=== PATIENT | female | born 1990 | race Two or more races ===

== ENCOUNTER 2018-03-11 11:33 | Emergency (ER) | payer SELFPAY ==
[~2018-03-11] VITALS: Ht 165.1 cm; Wt 104.3 kg
[2018-03-11 13:24] VITALS: BP 148/87
[2018-03-11] MEDS ORDERED: FAMOTIDINE 20 MG/2 ML VIAL IVP ONE (13:45)
[2018-03-11] MEDS ORDERED: IV NORMAL SALINE 1000ML BAG 1,000 ML IV ONE (13:45)
[2018-03-11] MEDS ORDERED: KETOROLAC 30 MG/ML VIAL. IV ONE (13:45)
[2018-03-11] MEDS ORDERED: PROCHLORPERAZINE 10 MG/2 ML VIAL. IV ONE (13:45)
[2018-03-11 13:51] LABS: BASO % 1 % (0-3); EOS # 0.1 x10^3/uL (0.0-0.7); EOS % 1 % (0-3); HEMATOCRIT 44.4 % (36.0-47.0); HEMOGLOBIN 14.9 g/dL (12.0-15.5); LYMPH % 32 % (24-48); MEAN CORPUSCULAR HEMOGLOBIN 31 pg (25-35); MEAN CORPUSCULAR HGB CONC 34 g/dL (31-37); MEAN CORPUSCULAR VOLUME 91 fL (79-100); MONO % 16 % (0-9); NEUT # 3.2 x10^3uL (1.8-7.7); NEUT % 51 % (31-73); PLATELET COUNT 379 x10^3/uL (140-400); RED CELL DISTRIBUTION WIDTH 15.2 % (11.5-14.5); WHITE BLOOD COUNT 6.2 x10^3/uL (4.0-11.0)
[2018-03-11 14:01] LABS: CALCIUM 9.1 mg/dL (8.5-10.1); CREATININE 0.9 mg/dL (0.6-1.0); GFR 76.3; POTASSIUM 3.1 mmol/L (3.5-5.1)
--- NOTE | 2018-03-11 14:05 | PHYS DOC ---
Past Medical History Past Medical History: No Pertinent History Past Surgical History: No Surgical History Alcohol Use: None Drug Use: None Adult General Chief Complaint Chief Complaint: SYNCOPE HPI HPI Patient is a 27 year old female who presents with 1 week of nausea and not eating and only taking in water because eating makes her vomit. Patient states she also has have palpitations, headache, generalized weakness, dizziness. Patient states that she passed out once last night and she passed out twice today. She states that she pulled it dizzy and then get nauseated and vomit and pass out. Review of Systems Review of Systems Constitutional: Denies fever or chills [] Eyes: Denies change in visual acuity, redness, or eye pain [] HENT: Denies nasal congestion or sore throat [] Respiratory: Denies cough or shortness of breath [] Cardiovascular: No additional information not addressed in HPI [] GI: Denies abdominal pain, nausea, vomiting, bloody stools or diarrhea [] : Denies dysuria or hematuria [] Musculoskeletal: Denies back pain or joint pain [] Integument: Denies rash or skin lesions [] Neurologic: Denies headache, focal weakness or sensory changes [] Endocrine: Denies polyuria or polydipsia [] All other systems were reviewed and found to be within normal limits, except as documented in this note. Current Medications Current Medications Current Medications Medications (Trade) Dose Ordered Sig/Zhen Start Time Stop Time Status Last Admin Dose Admin Famotidine (Pepcid Vial) 20 mg 1X ONCE 03/11/18 13:45 03/11/18 13:48 DC 03/11/18 14:08 20 MG Info (CONTRAST GIVEN -- Rx MONITORING) 1 each PRN DAILY PRN 03/11/18 15:45 03/13/18 15:44 Iohexol (Omnipaque 300 Mg/ml) 75 ml 1X ONCE 03/11/18 15:45 03/11/18 15:46 DC Ketorolac Tromethamine (Toradol 30mg Vial) 30 mg 1X ONCE 03/11/18 13:45 03/11/18 13:48 DC 03/11/18 14:09 30 MG Prochlorperazine Edisylate (Compazine) 10 mg 1X ONCE 03/11/18 13:45 03/11/18 13:48 DC 03/11/18 14:09 10 MG Sodium Chloride 1,000 ml @ 1,000 mls/hr 1X ONCE 03/11/18 13:45 03/11/18 14:44 DC 03/11/18 14:10 1,000 MLS/HR Allergies Allergies Allergies Coded Allergies Type Severity Reaction Last Updated Verified No Known Drug Allergies 03/11/18 No Physical Exam Physical Exam Constitutional: Well developed, well nourished, no acute distress, non-toxic appearance. [] HENT: Normocephalic, atraumatic, bilateral external ears normal, oropharynx moist, no oral exudates, nose normal. [] Eyes: PERRLA, EOMI, conjunctiva normal, no discharge. [] Neck: Normal range of motion, no tenderness, supple, no stridor. [] Cardiovascular:Heart rate regular rhythm, no murmur [] Lungs & Thorax: Bilateral breath sounds clear to auscultation [] Abdomen: Bowel sounds normal, soft, no tenderness, no masses, no pulsatile masses. [] Skin: Warm, dry, no erythema, no rash. [] Back: No tenderness, no CVA tenderness. [] Extremities: No tenderness, no cyanosis, no clubbing, ROM intact, no edema. [] Neurologic: Alert and oriented X 3, normal motor function, normal sensory function, no focal deficits noted. [] Psychologic: Affect normal, judgement normal, mood normal. [] Current Patient Data Vital Signs Vital Signs Date Time Temp Pulse Resp B/P (MAP) Pulse Ox O2 Delivery O2 Flow Rate FiO2 03/11/18 13:24 97.7 104 18 148/87 (107) 100 Room Air 97.7 Lab Values Laboratory Tests Test 03/11/18 13:12 03/11/18 13:40 03/11/18 14:51 03/11/18 14:58 Glucose (Fingerstick) 133 mg/dL (70-99) H White Blood Count 6.2 x10^3/uL (4.0-11.0) Red Blood Count 4.90 x10^6/uL (3.50-5.40) Hemoglobin 14.9 g/dL (12.0-15.5) Hematocrit 44.4 % (36.0-47.0) Mean Corpuscular Volume 91 fL (79-100) Mean Corpuscular Hemoglobin 31 pg (25-35) Mean Corpuscular Hemoglobin Concent 34 g/dL (31-37) Red Cell Distribution Width 15.2 % (11.5-14.5) H Platelet Count 379 x10^3/uL (140-400) Neutrophils (%) (Auto) 51 % (31-73) Lymphocytes (%) (Auto) 32 % (24-48) Monocytes (%) (Auto) 16 % (0-9) H Eosinophils (%) (Auto) 1 % (0-3) Basophils (%) (Auto) 1 % (0-3) Neutrophils # (Auto) 3.2 x10^3uL (1.8-7.7) Lymphocytes # (Auto) 2.0 x10^3/uL (1.0-4.8) Monocytes # (Auto) 1.0 x10^3/uL (0.0-1.1) Eosinophils # (Auto) 0.1 x10^3/uL (0.0-0.7) Basophils # (Auto) 0.0 x10^3/uL (0.0-0.2) Sodium Level 141 mmol/L (136-145) Potassium Level 3.1 mmol/L (3.5-5.1) L Chloride Level 102 mmol/L (98-107) Carbon Dioxide Level 27 mmol/L (21-32) Anion Gap 12 (6-14) Blood Urea Nitrogen 3 mg/dL (7-20) L Creatinine 0.9 mg/dL (0.6-1.0) Estimated GFR (Cockcroft-Gault) 76.3 BUN/Creatinine Ratio 3 (6-20) L Glucose Level 125 mg/dL (70-99) H Calcium Level 9.1 mg/dL (8.5-10.1) Total Bilirubin 0.4 mg/dL (0.2-1.0) Aspartate Amino Transferase (AST) 16 U/L (15-37) Alanine Aminotransferase (ALT) 27 U/L (14-59) Alkaline Phosphatase 75 U/L (46-116) Total Protein 8.2 g/dL (6.4-8.2) Albumin 3.7 g/dL (3.4-5.0) Albumin/Globulin Ratio 0.8 (1.0-1.7) L Urine Collection Type U cath Urine Color Yellow Urine Clarity Cloudy Urine pH 6.0 Urine Specific [place] <=1.005 Urine Protein Negative mg/dL (NEG-TRACE) Urine Glucose (UA) Negative mg/dL (NEG) Urine Ketones (Stick) Negative mg/dL (NEG) Urine Blood Negative (NEG) Urine Nitrite Negative (NEG) Urine Bilirubin Negative (NEG) Urine Urobilinogen Dipstick 0.2 mg/dL (0.2 mg/dL) Urine Leukocyte Esterase Negative (NEG) Urine RBC 0 /HPF (0-2) Urine WBC 1-4 /HPF (0-4) Urine Squamous Epithelial Cells Many /LPF Urine Bacteria Many /HPF (0-FEW) POC Urine HCG, Qualitative Hcg negative (Negative) Laboratory Tests 03/11/18 13:40 Laboratory Tests 03/11/18 13:40 EKG EKG Normal sinus rhythm. No STEMI.[] Interpretation Time: 1403and read by Dr Ayala Radiology/Procedures Radiology/Procedures [] Impressions: [facility] [address] [place] [address] IMAGING REPORT Signed PATIENT: CARI BOJORQUEZ ACCOUNT: [id number] : 1990 LOCATION: ER AGE: 27 SEX: F EXAM STATUS: REG ER ORD. PHYSICIAN: NISA ZURITA APRN REASON: abdominal pain PROCEDURE: CT ABD PELV W/ IV CONTRST ONLY CT of the abdomen and pelvis with contrast 03/11/2018 3:46 PM Indication: SYNCOPAL EPISODE LAST NIGHT DIZZY VOMITING BURNING ON URINATION R FLANK PAIN NO PREV INJ 75ML OMNI 300 Comparison study: None Technique: Multidetector CT imaging of the abdomen and pelvis was performed following the administration of IV contrast. Findings: The partially visualized lung bases demonstrate no acute abnormality. The liver, gallbladder, spleen, bilateral adrenal glands, bilateral kidneys, and pancreas, demonstrate no acute abnormality.. There is no bowel obstruction. No evidence of acute inflammatory change involving visualized bowel is identified. Appendix is visualized and unremarkable in appearance. Bladder is mildly distended but otherwise grossly unremarkable. No free fluid or free air is seen in the abdomen or pelvis. No acute osseous changes are identified. Impression: No evidence of acute intra-abdominal abnormality is identified. CT DOSING PQRS STATEMENT: One or more of the following individualized dose reduction techniques were utilized for this examination: 1. Automated exposure control 2. Adjustment of the mA and/or kV according to patient size 3. Use of iterative reconstruction technique . Electronically signed by: Kirit Maldonado MD (03/11/2018 3:51 PM) [facility] DICTATED and SIGNED BY: KIRIT MALDONADO MD DATE: 03/11/18 [id number] [place] [address] IMAGING REPORT Signed PATIENT: CARI BOJORQUEZ ACCOUNT: [id number] : 1990 LOCATION: ER AGE: 27 SEX: F EXAM STATUS: REG ER ORD. PHYSICIAN: NISA ZURITA APRN REASON: syncope NEG PREG TEST @15:07 PROCEDURE: CHEST PA & LATERAL CHEST PA LATERAL History: Syncope Comparison: None. Findings: 2 views of the chest are submitted. There is no infiltrate, pneumothorax, or effusion. The cardiac silhouette is within normal limits in size. There is mild mid to inferior thoracic dextroscoliosis. Impression: 1. There is no radiographic evidence of acute cardiopulmonary disease. Electronically signed by: Georgiana Ragsdale MD (03/11/2018 3:41 PM) [facility] DICTATED and SIGNED BY: GEORGIANA RAGSDALE MD DATE: 03/11/18 1540 [facility] [address] [place], [place] [id number] IMAGING REPORT Signed PATIENT: CARI BOJORQUEZ ACCOUNT: [id number] : 1990 LOCATION: ER AGE: 27 SEX: F EXAM STATUS: REG ER ORD. PHYSICIAN: NISA ZURITA APRN REASON: syncope PROCEDURE: CT HEAD WO CONTRAST CT HEAD WO CONTRAST Clinical indications: SYNCOPAL EPISODE LAST NIGHT DIZZY VOMITING BURNING ON URINATION R FLANK PAIN COMPARISON: None available. Technique: Noncontrast axial cross sectional scanning of the head was performed. PQRS compliance Statement One or more of the following individualized dose reduction techniques were utilized for this study: 1. Automated exposure control 2. Adjustment of the mA and/or kV according to patient size 3. Use of iterative reconstruction technique Findings: No acute intracranial hemorrhage or midline shift or mass-effect or hydrocephalus or extra-axial fluid collection is seen. No focal hypodense area or sulci effacement is seen to indicate an acute infarct or edema radiographically. No skull fracture or pneumocephalus is seen. No opacification of the mastoid sinuses or the middle ear cavities is seen. The paranasal sinuses are not completely seen in this study. Impression: No acute intracranial abnormality is seen. Electronically signed by: Tara Kathleen MD (03/11/2018 3:40 PM) [facility] DICTATED and SIGNED BY: TARA KATHLEEN MD DATE: 03/11/18 1538 Course & Med Decision Making Course & Med Decision Making Patient is a 27 year old female who presents with 1 week of nausea and not eating and only taking in water because eating makes her vomit. Patient states she also has have palpitations, headache, generalized weakness, dizziness. Patient states that she passed out once last night and she passed out twice today. She states that she pulled it dizzy and then get nauseated and vomit and pass out. Alert and oriented. In the car with a is skin pink warm and dry. Neurologically intact. Mucous membranes are moist. Abdomen is soft but generalized tenderness is felt. She does state that she does have some burning with urination. She denies any vaginal discharge or vaginal bleeding. Her last period was March 01. She denies any pain at this time. PERRLA. Patient's blood glucose in the ED is 133. Heart rate 70, 100% on room air, 16 respirations , 97.7, 148/99. Patient states she has no medical or surgical history. She is allergic to any medications. Patient's orthostatics are layin, 122/69; sittin, 128/75; standin/69, 94. Patient denies any chest pain, shortness of air, diarrhea, fever, numbness or tingling. Patient has no peripheral edema, pain with breathing or calf pain. Patient is not on any control or hormones. She denies any recent illness. Lungs are clear to auscultation in all lobes. Heart regular without murmur. Blood work is unremarkable. All radiology scans show no acute findings. Urine shows some bacteria but no nitrites and only 1-4 white blood cell counts. Patient we given nausea medication and a prescription for Keflex for 5 days because of the bacteria in her urine and the patient having dysuria. Patient to drink plenty of fluids and eat before taking antibiotic. Patient is follow primary care doctor. Dragon Disclaimer Dragon Disclaimer This electronic medical record was generated, in whole or in part, using a voice recognition dictation system. Departure Departure Impression: Primary Impression: Nausea & vomiting Additional Impressions: Dizziness Urinary symptom or sign Disposition: HOME, SELF-CARE Condition: STABLE Referrals: NO PCP (PCP) Patient Instructions: Dizziness, Nausea and Vomiting, Urinary Tract Infection Additional Instructions: Patient to drink plenty of fluids and eat before taking antibiotic. Patient is follow primary care doctor. Scripts Cephalexin (KEFLEX) 500 Mg Capsule 1 CAP PO BID for 5 Days, #10 CAP Prov: NISA ZURITA APRN 03/11/18 Ondansetron (ONDANSETRON ODT) 4 Mg Tab.rapdis 1 TAB PO PRN Q6-8HRS, #20 TAB Prov: NISA ZURITA APRN 03/11/18 NIHSS Stroke Scale NIH Stroke Scale: NIH Stroke Scale Response (Comments) Value Level of Consciousness: 0 Alert/Responsive 0 LOC Questions: 0 Answers both correctly 0 LOC Commands: 0 Performs both tasks 0 Best Gaze: 0 Normal 0 Visual: 0 No visual loss 0 Facial Palsy: 0 Normal, symmetrical 0 Motor - Left Arm 0 No drift 0 Motor - Right Arm 0 No drift 0 Motor - Left Leg 0 No drift 0 Motor: Right Leg 0 No drift 0 Limb Ataxia: 0 Absent 0 Sensory: 0 No loss 0 Best Language: 0 Normal 0 Dysathria: 0 Normal 0 Extinction and Inattention: 0 Normal 0 Total 0 Problem Qualifiers Primary Impression: Nausea & vomiting Vomiting type: unspecified Vomiting Intractability: unspecified Qualified Codes: R11.2 - Nausea with vomiting, unspecified NISA ZURITA DAY GUARD Mar 11, 2018 14:05
[2018-03-11 14:07] LABS: ALBUMIN 3.7 g/dL (3.4-5.0); ALBUMIN/GLOBULIN RATIO 0.8 (1.0-1.7); TOTAL BILIRUBIN 0.4 mg/dL (0.2-1.0); TOTAL PROTEIN 8.2 g/dL (6.4-8.2)
--- NOTE | 2018-03-11 14:34 | EKG ---
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
[2018-03-11 15:06] LABS: BILIRUBIN,URINE NEGATIVE (NEG); CLARITY,URINE CLOUDY; COLOR,URINE YELLOW; NITRITE,URINE NEGATIVE (NEG); PROTEIN,URINE NEGATIVE (NEG-TRACE); UROBILINOGEN,URINE 0.2 mg/dL (0.2 mg/dL)
[2018-03-11 15:21] LABS: BACTERIA,URINE MANY /HPF (0-FEW); SQUAMOUS EPITHELIAL CELL,UR MANY /LPF
[2018-03-11 15:22] LABS: RBC,URINE 0 /HPF (0-2)
--- NOTE | 2018-03-11 15:44 | RAD ---
CT HEAD WO CONTRAST Clinical indications: SYNCOPAL EPISODE LAST NIGHT DIZZY VOMITING BURNING ON URINATION R FLANK PAIN COMPARISON: None available. Technique: Noncontrast axial cross sectional scanning of the head was performed. PQRS compliance Statement One or more of the following individualized dose reduction techniques were utilized for this study: 1. Automated exposure control 2. Adjustment of the mA and/or kV according to patient size 3. Use of iterative reconstruction technique Findings: No acute intracranial hemorrhage or midline shift or mass-effect or hydrocephalus or extra-axial fluid collection is seen. No focal hypodense area or sulci effacement is seen to indicate an acute infarct or edema radiographically. No skull fracture or pneumocephalus is seen. No opacification of the mastoid sinuses or the middle ear cavities is seen. The paranasal sinuses are not completely seen in this study. Impression: No acute intracranial abnormality is seen. Electronically signed by: Maynor Kathleen MD (03/11/2018 3:40 PM) [facility]
[2018-03-11] MEDS ORDERED: CONTRAST GIVEN. MC PRN (15:45)
[2018-03-11] MEDS ORDERED: IOHEXOL 300 MG/ML 100ML VIAL. IV ONE (15:45)
--- NOTE | 2018-03-11 15:45 | RAD ---
CHEST PA LATERAL History: Syncope Comparison: None. Findings: 2 views of the chest are submitted. There is no infiltrate, pneumothorax, or effusion. The cardiac silhouette is within normal limits in size. There is mild mid to inferior thoracic dextroscoliosis. Impression: 1. There is no radiographic evidence of acute cardiopulmonary disease. Electronically signed by: Yemi Pinedo MD (03/11/2018 3:41 PM) [facility]
--- NOTE | 2018-03-11 15:55 | RAD ---
CT of the abdomen and pelvis with contrast 03/11/2018 3:46 PM Indication: SYNCOPAL EPISODE LAST NIGHT DIZZY VOMITING BURNING ON URINATION R FLANK PAIN NO PREV INJ 75ML OMNI 300 Comparison study: None Technique: Multidetector CT imaging of the abdomen and pelvis was performed following the administration of IV contrast. Findings: The partially visualized lung bases demonstrate no acute abnormality. The liver, gallbladder, spleen, bilateral adrenal glands, bilateral kidneys, and pancreas, demonstrate no acute abnormality.. There is no bowel obstruction. No evidence of acute inflammatory change involving visualized bowel is identified. Appendix is visualized and unremarkable in appearance. Bladder is mildly distended but otherwise grossly unremarkable. No free fluid or free air is seen in the abdomen or pelvis. No acute osseous changes are identified. Impression: No evidence of acute intra-abdominal abnormality is identified. CT DOSING PQRS STATEMENT: One or more of the following individualized dose reduction techniques were utilized for this examination: 1. Automated exposure control 2. Adjustment of the mA and/or kV according to patient size 3. Use of iterative reconstruction technique . Electronically signed by: Kirit Clinton MD (03/11/2018 3:51 PM) [facility]
[2018-03-11] MEDS ORDERED: ONDA4TAB12 PO (16:04)
[2018-03-11] MEDS ORDERED: CEPH-264 PO (16:04)
== END 2018-03-11 16:23 | disposition home or self-care (01) ==
LOC: ER 11:33
DX: R11.2 Nausea with vomiting, unspecified (principal); R00.2 Palpitations; R51 Headache; R53.1 Weakness; R42 Dizziness and giddiness
CPT/HCPCS: 36415; 70450; 71046; 74177; 80053; 81001; 81025; 82962; 85025; 87086; 93005; 96361; 96374; 96375; 99284; J0780; J1885; J3490; J7030

== ENCOUNTER 2019-03-05 20:51 | Emergency (ER) | payer MEDICAID ==
[~2019-03-05 20:51] MED LIST: CEPH-264 PO; ONDA4TAB12 PO
[2019-03-05] MEDS ORDERED: fentaNYL PF VIAL 100 MCG/2 ML VIAL ONE (22:13)
[2019-03-05] MEDS ORDERED: ONDANSETRON PF 4 MG/2 ML VIAL. ONE (22:13)
[2019-03-05 22:14] LABS: BILIRUBIN,URINE NEGATIVE (NEG); CLARITY,URINE CLEAR; COLOR,URINE YELLOW; NITRITE,URINE NEGATIVE (NEG); PROTEIN,URINE NEGATIVE (NEG-TRACE); UROBILINOGEN,URINE 0.2 mg/dL (0.2 mg/dL)
[2019-03-05 22:18] LABS: BACTERIA,URINE 0 /HPF (0-FEW); RBC,URINE 0 /HPF (0-2); SQUAMOUS EPITHELIAL CELL,UR FEW /LPF; WBC,URINE 0 /HPF (0-4)
[2019-03-05 22:21] LABS: BASO # 0.1 x10^3/uL (0.0-0.2); BASO % 1 % (0-3); EOS # 0.1 x10^3/uL (0.0-0.7); EOS % 1 % (0-3); HEMATOCRIT 45.1 % (36.0-47.0); HEMOGLOBIN 15.4 g/dL (12.0-15.5); LYMPH # 2.1 x10^3/uL (1.0-4.8); LYMPH % 33 % (24-48); MEAN CORPUSCULAR HEMOGLOBIN 30 pg (25-35); MEAN CORPUSCULAR HGB CONC 34 g/dL (31-37); MEAN CORPUSCULAR VOLUME 87 fL (79-100); MONO # 1.3 x10^3/uL (0.0-1.1); MONO % 21 % (0-9); NEUT # 2.8 x10^3/uL (1.8-7.7); NEUT % 44 % (31-73); PLATELET COUNT 351 x10^3/uL (140-400); RED BLOOD COUNT 5.21 x10^6/uL (3.50-5.40); RED CELL DISTRIBUTION WIDTH 14.8 % (11.5-14.5); WHITE BLOOD COUNT 6.3 x10^3/uL (4.0-11.0)
[2019-03-05] MEDS ORDERED: fentaNYL PF VIAL 100 MCG/2 ML VIAL IV ONE (22:30)
[2019-03-05] MEDS ORDERED: ONDANSETRON PF 4 MG/2 ML VIAL. IV ONE (22:30)
[2019-03-05] MEDS ORDERED: IV NORMAL SALINE 1000ML BAG 1,000 ML IV ONE (22:30)
--- NOTE | 2019-03-05 22:39 | PHYS DOC ---
Past Medical History Past Medical History: No Pertinent History Past Surgical History: No Surgical History Alcohol Use: None Drug Use: None Adult General Chief Complaint Chief Complaint: NAUSEA/VOMITING/DIARRHA HPI HPI Patient is a 28 year old female accompanied by her family, who presents to the emergency department with complaints of nausea and vomiting for the last 3 days. Patient states every time she eats she vomits, today she has vomited a total of 5 times. Patient complains of right upper quadrant, epigastric, and left upper quadrant abdominal pain. She denies any fever. Patient denies vomiting any blood, shortness of breath, fever, sore throat, chest pain, palpitations, diarrhea, dysuria, hematuria, back pain, or concerns of . She currently rates her abdominal discomfort a 10 out of 10 on the pain scale, she denies any alleviating factors. All other ROS is neg unless otherwise noted in HPI. Review of Systems Review of Systems See Above Current Medications Current Medications Current Medications Medications (Trade) Dose Ordered Sig/Zhen Start Time Stop Time Status Last Admin Dose Admin Fentanyl Citrate (Fentanyl 2ml Vial) 100 mcg STK-MED ONCE 03/05/19 22:13 03/06/19 02:22 DC Info (CONTRAST GIVEN -- Rx MONITORING) 1 each PRN DAILY PRN 03/05/19 23:45 03/06/19 01:01 DC Iohexol (Omnipaque 300 Mg/ml) 100 ml STK-MED ONCE 03/06/19 04:47 03/06/19 04:47 DC Ondansetron HCl (Zofran) 4 mg STK-MED ONCE 03/05/19 22:13 03/06/19 02:22 DC Potassium Chloride (Klor-Con) 20 meq STK-MED ONCE 03/05/19 23:42 03/06/19 02:22 DC Sodium Chloride 1,000 ml @ 1,000 mls/hr 1X ONCE 03/05/19 22:30 03/05/19 23:29 DC 03/05/19 22:15 1,000 MLS/HR Allergies Allergies Allergies Coded Allergies Type Severity Reaction Last Updated Verified No Known Drug Allergies 03/11/18 No Physical Exam Physical Exam See Above Constitutional: Well developed, well nourished, no acute distress, non-toxic appearance, obese. [] HENT: Normocephalic, atraumatic, bilateral external ears normal, oropharynx moist, no oral exudates, nose normal. [] Eyes: PERRLA, EOMI, conjunctiva normal, no discharge. [] Neck: Normal range of motion, no stridor. [] Cardiovascular:Heart rate regular rhythm, no murmur [] Lungs & Thorax: Bilateral breath sounds clear to auscultation [] Abdomen: Bowel sounds normal, soft; RUQ, and epigastric TTP; no rebound tenderness, no masses, no pulsatile masses. [] Skin: Warm, dry, no erythema, no rash. [] Extremities: No cyanosis, ROM intact, Neurologic: Alert and oriented X 3, no focal deficits noted. [] Psychologic: Affect normal, judgement normal, mood normal. [] Current Patient Data Vital Signs Vital Signs Date Time Temp Pulse Resp B/P (MAP) Pulse Ox O2 Delivery O2 Flow Rate FiO2 03/06/19 00:47 89 139/92 (108) 99 Room Air 03/05/19 22:16 14 03/05/19 21:15 97.8 97.8 Lab Values Laboratory Tests Test 03/05/19 22:00 03/05/19 22:08 03/05/19 22:15 Urine Collection Type Unknown Urine Color Yellow Urine Clarity Clear Urine pH 7.0 Urine Specific [place] <=1.005 Urine Protein Negative mg/dL (NEG-TRACE) Urine Glucose (UA) Negative mg/dL (NEG) Urine Ketones (Stick) Negative mg/dL (NEG) Urine Blood Negative (NEG) Urine Nitrite Negative (NEG) Urine Bilirubin Negative (NEG) Urine Urobilinogen Dipstick 0.2 mg/dL (0.2 mg/dL) Urine Leukocyte Esterase Negative (NEG) Urine RBC 0 /HPF (0-2) Urine WBC 0 /HPF (0-4) Urine Squamous Epithelial Cells Few /LPF Urine Bacteria 0 /HPF (0-FEW) POC Urine HCG, Qualitative Hcg negative (Negative) White Blood Count 6.3 x10^3/uL (4.0-11.0) Red Blood Count 5.21 x10^6/uL (3.50-5.40) Hemoglobin 15.4 g/dL (12.0-15.5) Hematocrit 45.1 % (36.0-47.0) Mean Corpuscular Volume 87 fL (79-100) Mean Corpuscular Hemoglobin 30 pg (25-35) Mean Corpuscular Hemoglobin Concent 34 g/dL (31-37) Red Cell Distribution Width 14.8 % (11.5-14.5) H Platelet Count 351 x10^3/uL (140-400) Neutrophils (%) (Auto) 44 % (31-73) Lymphocytes (%) (Auto) 33 % (24-48) Monocytes (%) (Auto) 21 % (0-9) H Eosinophils (%) (Auto) 1 % (0-3) Basophils (%) (Auto) 1 % (0-3) Neutrophils # (Auto) 2.8 x10^3/uL (1.8-7.7) Lymphocytes # (Auto) 2.1 x10^3/uL (1.0-4.8) Monocytes # (Auto) 1.3 x10^3/uL (0.0-1.1) H Eosinophils # (Auto) 0.1 x10^3/uL (0.0-0.7) Basophils # (Auto) 0.1 x10^3/uL (0.0-0.2) Segmented Neutrophils % 43 % (35-66) Band Neutrophils % 1 % (0-9) Lymphocytes % 36 % (24-48) Atypical Lymphocytes % (Manual) 8 % (0-0) H Monocytes % 12 % (0-10) H Platelet Estimate Adequate (ADEQUATE) Sodium Level 137 mmol/L (136-145) Potassium Level 2.8 mmol/L (3.5-5.1) *L Chloride Level 99 mmol/L (98-107) Carbon Dioxide Level 25 mmol/L (21-32) Anion Gap 13 (6-14) Blood Urea Nitrogen 2 mg/dL (7-20) L Creatinine 0.9 mg/dL (0.6-1.0) Estimated GFR (Cockcroft-Gault) 75.7 BUN/Creatinine Ratio 2 (6-20) L Glucose Level 103 mg/dL (70-99) H Calcium Level 9.1 mg/dL (8.5-10.1) Magnesium Level 1.3 mg/dL (1.8-2.4) L Total Bilirubin 0.6 mg/dL (0.2-1.0) Aspartate Amino Transferase (AST) 46 U/L (15-37) H Alanine Aminotransferase (ALT) 58 U/L (14-59) Alkaline Phosphatase 74 U/L (46-116) Total Protein 8.6 g/dL (6.4-8.2) H Albumin 4.0 g/dL (3.4-5.0) Albumin/Globulin Ratio 0.9 (1.0-1.7) L Lipase 416 U/L (73-393) H Laboratory Tests 03/05/19 22:15 Laboratory Tests 03/05/19 22:15 EKG EKG [] Radiology/Procedures Radiology/Procedures PROCEDURE: CT ABD PELV W/ IV CONTRST ONLY CT abdomen and pelvis with contrast. HISTORY: Upper abdominal pain CT scan the abdomen pelvis was done using 75 mL Omnipaque 300 contrast. Lung bases are clear. There is no effusion. A liver lesion is not identified. There is no calcified gallstone or gallbladder wall thickening. Spleen and adrenal glands are normal. Pancreas is normal. There is no mass or hydronephrosis in the kidneys. There is no retroperitoneal adenopathy. There is no bowel obstruction or ascites. Appendix is normal. Uterus is unremarkable. Ovaries are generous in size without a definite mass. There is no free fluid in the pelvis. IMPRESSION: 1. No bowel obstruction. 2. Normal appendix. 3. Ovaries generous in size but a definite mass is not identified. 4. No other acute finding. [] Course & Med Decision Making Course & Med Decision Making Pertinent Labs and Imaging studies reviewed. (See chart for details) [] Dragon Disclaimer Dragon Disclaimer This electronic medical record was generated, in whole or in part, using a voice recognition dictation system. Departure Departure Impression: Primary Impression: Nausea & vomiting Additional Impression: Abdominal pain Disposition: 01 HOME, SELF-CARE Condition: STABLE Referrals: NO PCP (PCP) Patient Instructions: Abdominal Pain (Nonspecific), Nausea and Vomiting, [id number] Additional Instructions: Fill prescriptions and use them as directed. Recommend clear fluids for the next 24 hours. Then you may advance to bland foods such as bananas, rice, applesauce, and dry toast. Follow-up with your primary care doctor in the next 1-2 days. Return to the emergency room if your symptoms worsen. Scripts Ondansetron Hcl (ONDANSETRON HCL) 4 Mg Tablet 1 TAB PO PRN Q6HRS PRN for NAUSEA/VOMITING for 3 Days, #10 TAB 0 Refills Prov: CAS MENDOZA [employer]CH[employer]IC 03/06/19 Problem Qualifiers Primary Impression: Nausea & vomiting Vomiting type: unspecified Vomiting Intractability: non-intractable Qualified Codes: R11.2 - Nausea with vomiting, unspecified Additional Impression: Abdominal pain Abdominal location: right upper quadrant Qualified Codes: R10.11 - Right upper quadrant pain CAS MENDOZA [employer]CH[employer] Mar 05, 2019 22:38
[2019-03-05 22:40] LABS: ALBUMIN/GLOBULIN RATIO 0.9 (1.0-1.7); CALCIUM 9.1 mg/dL (8.5-10.1); CREATININE 0.9 mg/dL (0.6-1.0); GFR 75.7; MAGNESIUM 1.3 mg/dL (1.8-2.4); TOTAL BILIRUBIN 0.6 mg/dL (0.2-1.0); TOTAL PROTEIN 8.6 g/dL (6.4-8.2)
[2019-03-05 22:41] LABS: POTASSIUM 2.8 mmol/L (3.5-5.1)
[2019-03-05 23:06] LABS: % ATYL 8 % (0-0); % BANDS 1 % (0-9); PLT ESTIMATE ADEQUATE (ADEQUATE)
[2019-03-05 23:08] LABS: % LYMPHS 36 % (24-48); % MONOS 12 % (0-10); % SEGS 43 % (35-66)
[2019-03-05] MEDS ORDERED: POTASSIUM CHLORIDE 20 MEQ TABLET.ER. PO ONE (23:42)
[2019-03-05] MEDS ORDERED: IOHEXOL 300 MG/ML 100ML VIAL. IV ONE (23:45)
[2019-03-05] MEDS ORDERED: CONTRAST GIVEN. MC PRN (23:45)
[2019-03-06] MEDS ORDERED: POTASSIUM CHLORIDE 20 MEQ TABLET.ER. PO ONE (00:15)
[2019-03-06 00:47] VITALS: BP 139/92
[2019-03-06] MEDS ORDERED: ONDA-84 PO (00:47)
--- NOTE | 2019-03-06 03:39 | RAD ---
CT abdomen and pelvis with contrast. HISTORY: Upper abdominal pain CT scan the abdomen pelvis was done using 75 mL Omnipaque 300 contrast. Lung bases are clear. There is no effusion. A liver lesion is not identified. There is no calcified gallstone or gallbladder wall thickening. Spleen and adrenal glands are normal. Pancreas is normal. There is no mass or hydronephrosis in the kidneys. There is no retroperitoneal adenopathy. There is no bowel obstruction or ascites. Appendix is normal. Uterus is unremarkable. Ovaries are generous in size without a definite mass. There is no free fluid in the pelvis. IMPRESSION: 1. No bowel obstruction. 2. Normal appendix. 3. Ovaries generous in size but a definite mass is not identified. 4. No other acute finding. PQRS Compliance Statement: One or more of the following individualized dose reduction techniques were utilized for this examination: 1. Automated exposure control 2. Adjustment of the mA and/or kV according to patient size 3. Use of iterative reconstruction technique Electronically signed by: Phan Melissa MD (03/06/2019 3:36 AM) [id number]
[2019-03-06] MEDS ORDERED: IOHEXOL 300 MG/ML 100ML VIAL. ONE (04:47)
== END 2019-03-06 01:00 | disposition home or self-care (01) ==
LOC: ER 20:51
DX: R11.2 Nausea with vomiting, unspecified (principal); R10.13 Epigastric pain; R10.11 Right upper quadrant pain
CPT/HCPCS: 36415; 74177; 80053; 81001; 81025; 83690; 83735; 85007; 85025; 96361; 96374; 96375; 99285; J2405; J3010; J7030; Q9967

== ENCOUNTER 2020-02-20 11:31 | Emergency (ER) | payer MEDICAID ==
[~2020-02-20] VITALS: Ht 165.1 cm; Wt 110.0 kg
[~2020-02-20 11:31] MED LIST changes: +ONDA-84 PO
[2020-02-20 14:04] VITALS: BP 136/94
--- NOTE | 2020-02-20 15:14 | ED.ADGEN ---
Past Medical History Past Medical History: No Pertinent History Past Surgical History: No Surgical History Smoking Status: Never Smoker Alcohol Use: None Drug Use: None General Adult EDM: Chief Complaint: EYE PROBLEMS HPI: HPI: Patient is a 29 year old female who presents emergency department with complaints of a swollen, tender area to the left lateral upper eyelid. She denies any redness, warmth, or drainage from the site. She denies any vision changes or injury to the area. She currently denies any pain. Review of Systems: Review of Systems: Complete ROS is negative unless otherwise noted in HPI. Allergies: Allergies: Allergies Coded Allergies Type Severity Reaction Last Updated Verified No Known Drug Allergies 03/11/18 No Physical Exam: PE: See Above Constitutional: Well developed, well nourished, no acute distress, non-toxic appearance, obese. [] HENT: Normocephalic, atraumatic, bilateral external ears normal, nose normal. [] Eyes: PERRLA, EOMI, conjunctiva normal, no discharge; swollen area to the lateral left upper eyelid without any drainage, warmth, fluctuance, concerning for stye. [] Neck: Normal range of motion, no stridor. [] Cardiovascular:Heart rate regular rhythm Lungs & Thorax: Respirations even and unlabored, no retractions, no respiratory distress Skin: Warm, dry, no erythema, no rash. [] Extremities: No cyanosis, ROM intact, no edema. [] Neurologic: Alert and oriented X 3, no focal deficits noted. [] Psychologic: Affect normal, judgement normal, mood normal. [] Current Patient Data: Vital Signs: Vital Signs Date Time Temp Pulse Resp B/P (MAP) Pulse Ox O2 Delivery O2 Flow Rate FiO2 02/20/20 14:04 97.9 65 16 136/94 (108) 98 Room Air 97.9 EKG: EKG: [] Heart Score: Risk Factors: Risk Factors: DM, Current or recent (<one month) smoker, HTN, HLP, family history of CAD, obesity. Risk Scores: Score 0 - 3: 2.5% MACE over next 6 weeks - Discharge Home Score 4 - 6: 20.3% MACE over next 6 weeks - Admit for Clinical Observation Score 7 - 10: 72.7% MACE over next 6 weeks - Early Invasive Strategies Radiology/Procedures: Radiology/Procedures: [] Course & Med Decision Making: Course & Med Decision Making Pertinent Labs and Imaging studies reviewed. (See chart for details) [] Dragon Disclaimer: Dragon Disclaimer: This electronic medical record was generated, in whole or in part, using a voice recognition dictation system. Departure Departure Impression: Primary Impression: Hordeolum of left upper eyelid Disposition: 01 DC HOME SELF CARE/HOMELESS Condition: STABLE Referrals: NO PCP (PCP) Patient Instructions: Sty Additional Instructions: Apply warm, moist washcloths to left eye as needed for comfort. Recommend use of baby shampoo to wash eyelids. Follow-up with your primary care doctor in 1-2 days. Return to the emergency room if your symptoms worsen. Problem Qualifiers Primary Impression: Hordeolum of left upper eyelid Hordeolum type: externum Qualified Codes: H00.014 - Hordeolum externum left upper eyelid CAS MENDOZA APRN Feb 20, 2020 15:14
== END 2020-02-20 15:21 | disposition home or self-care (01) ==
LOC: ER 11:31
DX: H00.014 Hordeolum externum left upper eyelid (principal)
CPT/HCPCS: 99282